=== PATIENT | male | born 1995 | race Caucasian/White ===

== ENCOUNTER 2019-05-29 17:30 | Emergency (ER) | payer BC, SELFPAY ==
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
[2019-05-29 17:43] VITALS: BP 150/91; PULSE 110; RESP 16; TEMP 37.2; O2SAT 99
[2019-05-29 18:10] LABS: Basophils Absolute Auto 0.1 K/mm3 (0.0-0.1); Basophils Percent Auto 0.5 % (0.2-1.2); Eosinophils Absolute Auto 0.2 K/mm3 (0-0.3); Eosinophils Percent Auto 0.9 % (0-4.4); Hematocrit 39.8 % (42.0-52.0); Hemoglobin 13.5 g/dL (14.0-18.0); Immature Granulocyte Absolute 0.07 K/mm3 (0.00-0.031); Immature Granulocyte Percent A 0.4 % (0-0.5); Lymphocytes Absolute Auto 1.65 K/mm3 (0.9-3.2); Lymphocytes Percent Auto 8.9 % (18.3-44.2); Mean Corpuscular HGB Conc 33.9 g/dl (32-36); Mean Corpuscular Volume 82.6 fl (80-100); Mean Platelet Volume 10.5 fl (7.4-10.4); Monocytes Absolute Auto 0.9 K/mm3 (0.1-0.6); Monocytes Percent Auto 5.1 % (2.6-8.5); Neutrophils Absolute Auto 15.5 K/mm3 (1.3-6.7); Neutrophils Percent Auto 84.2 % (45.5-73.1); Platelet Count Result 270 k/mm3 (150-375); Red Blood Count 4.82 M/mm3 (4.6-6.20); Red Cell Distribution Width 13.7 % (11.5-14.5); White Blood Count 18.4 K/mm3 (4.5-10.0)
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
[2019-05-29 18:22] LABS: Blood Urea Nitrogen 27 mg/dL (9-20); Calcium 9.6 mg/dL (8.4-10.2); Carbon Dioxide 23 mmol/L (22-30); Chloride 106 mmol/L (98-107); Estimated CRCL calculation 53 ml/min; Estimated Glomerular Filt Rate 28; Glucose 115 mg/dL (75-110); Potassium 3.5 mmol/L (3.4-5.0); Sodium 137 mmol/L (137-145)
== END 2019-05-29 19:43 | disposition home or self-care (01) ==
PROVIDERS: Emergency Medicine Emergency Medical Services; Emergency Provider Emergency Medicine; PCP Family Medicine
DX: S42.022A Displaced fracture of shaft of left clavicle, initial encounter for closed fracture (principal); Z87.891 Personal history of nicotine dependence; V86.56XA Driver of dirt bike or motor/cross bike injured in nontraffic accident, initial encounter
CPT/HCPCS: 36415; 71250; 72125; 80048; 85025; 99284; A4565; A9270

== ENCOUNTER 2020-01-16 09:07 | Emergency (ER) | payer BC, SELFPAY ==
--- NOTE | ~2020-01-16 | CT_ITS ---
EXAMINATION: CT abdomen pelvis wo con DATE: 01/16/2020 09:45 INDICATION: Abdominal pain. TECHNIQUE: Computed tomography (CT) of the abdomen and pelvis was performed without intravenous contr ast. Automated exposure control and iterative reconstruction technique were employed. The dose-length product was 1118.89 mGy-cm. COMPARISON: Chest CT 05/29/2019 FINDINGS: The visualized portions of the lung bases are clear without pneumonia or pleural effusion. The heart size is normal. No pericardial effusion. The liver, gallbladder, spleen, pancreas, and adre nal glands are normal. The kidneys are enlarged and contain innumerable cysts, hemorrhagic cysts, and indeterminate masses. The largest indeterminant mass measures 3.4 cm in right kidney. There are pare nchymal calcifications in both kidneys. There is mild bilateral hydronephrosis. There is asymmetric f at stranding in right perinephric space. There are no dilated loops of bowel. The appendix is normal. There are no pathologically enlarged lymph nodes. There is no free intraperitoneal fluid. There are small bilateral inguinal hernias containing fat. The bones are unremarkable. IMPRESSION: 1. Polycystic kidney disease. 2. Asymmetric fat stranding in right perinephric space, consistent with edema versus inflammation. Ru ptured cyst is a possible etiology. 3. Indeterminate masses in the kidneys measuring up to 3.4 cm on the right. These findings are most l ikely hemorrhagic cysts, but neoplasm cannot be excluded. 4. Mild bilateral hydronephrosis with transition points at the ureteropelvic junctions. It is not teersa ar if these findings are clinically significant. Reviewed, dictated and finalized at location A. IMPRESSION: 1. Polycystic kidney disease. 2. Asymmetric fat stranding in right perinephric space, consistent with edema v ersus inflammation. Ruptured cyst is a possible etiology. 3. Indeterminate masses in the kidneys measuring up to 3.4 cm on the right. The se findings are most likely hemorrhagic cysts, but neoplasm cannot be excluded. 4. Mild bilateral hydronephrosis with transition points at the ureteropelvic ju nctions. It is not clear if these findings are clinically significant.
[2020-01-16 09:15] VITALS: BP 163/96; PULSE 76; RESP 18; TEMP 36.3; O2SAT 100
[2020-01-16 09:30] LABS: Basophils Absolute Auto 0.1 K/mm3 (0.0-0.1); Basophils Percent Auto 0.6 % (0.2-1.2); Eosinophils Absolute Auto 0.5 K/mm3 (0-0.3); Eosinophils Percent Auto 3.9 % (0-4.4); Hematocrit 37.5 % (42.0-52.0); Hemoglobin 12.4 g/dL (14.0-18.0); Immature Granulocyte Absolute 0.04 K/mm3 (0.00-0.031); Immature Granulocyte Percent A 0.3 % (0-0.5); Lymphocytes Percent Auto 17.7 % (18.3-44.2); Mean Corpuscular HGB Conc 33.1 g/dl (32-36); Mean Corpuscular Hemoglobin 27.9 pg (26-34); Mean Corpuscular Volume 84.3 fl (80-100); Mean Platelet Volume 10.5 fl (7.4-10.4); Monocytes Percent Auto 7.9 % (2.6-8.5); Neutrophils Absolute Auto 8.6 K/mm3 (1.3-6.7); Neutrophils Percent Auto 69.6 % (45.5-73.1); Platelet Count Result 260 k/mm3 (150-375); Red Blood Count 4.45 M/mm3 (4.6-6.20); Red Cell Distribution Width 13.8 % (11.5-14.5); White Blood Count 12.4 K/mm3 (4.5-10.0)
[2020-01-16] MEDS: FAMOTIDINE 20 MG/2 ML VIAL IV PUSH (09:33)
[2020-01-16] MEDS: SODIUM CHLORIDE 0.9% IV 1,000 ML 999 ML IV CONT ×2 (09:33→10:58)
[2020-01-16 09:35] LABS: Add Urine Microscopic? YES; Appearance Urine Clear (Clear); Bacteria Urine Trace /hpf; Bilirubin Urine Negative (Negative); Blood Urine 1+ (Negative); Color Urine Straw (Yellow); Glucose Urine UA 1+ mg/dL (Negative); Ketones Urine Negative (Negative); Leukocyte Esterase Ur Negative LEU/UL (Negative); Mucus Urine Rare /lpf; Nitrate Urine Negative (Negative); Protein Urine 3+ mg/dL (Negative); Specific Grav Ur 1.011 (1.001-1.035); Urobilinogen Urine Negative mg/dL (<2.0); WBC Urine 0-3 /hpf
[2020-01-16 09:40] LABS: Alanine Aminotransferase 16 U/L (4-50); Albumin Level 3.8 g/dL (3.5-5.1); Alkaline Phosphatase 68 U/L (38-126); Anion Gap 8 mmol/L (8-16); Aspartate Amino Transferase 15 U/L (17-59); Bilirubin,Total 0.9 mg/dL (0.2-1.3); Blood Urea Nitrogen 43 mg/dL (9-20); Calcium 9.4 mg/dL (8.4-10.2); Carbon Dioxide 20 mmol/L (22-30); Chloride 110 mmol/L (98-107); Estimated CRCL calculation 31 ml/min; Estimated Glomerular Filt Rate 15; Glucose 107 mg/dL (75-110); Lipase 77 U/L (23-300); Potassium 4.2 mmol/L (3.4-5.0); Sodium 138 mmol/L (137-145)
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
[2020-01-16 11:36] VITALS: BP 148/76; PULSE 70; RESP 15; O2SAT 99
== END 2020-01-16 11:38 | disposition home or self-care (01) ==
PROVIDERS: Emergency Medicine Emergency Medical Services; Emergency Provider Emergency Medicine; PCP Family Medicine
DX: N17.9 Acute kidney failure, unspecified (principal); Q61.3 Polycystic kidney, unspecified; N18.9 Chronic kidney disease, unspecified; Z87.891 Personal history of nicotine dependence; N13.30 Unspecified hydronephrosis; N28.89 Other specified disorders of kidney and ureter
CPT/HCPCS: 36415; 74176; 80053; 81001; 83690; 85025; 96361; 96374; 99284; J7030

== ENCOUNTER 2020-03-16 15:04 | Outpatient (CLI) | payer BC, SELFPAY ==
--- NOTE | ~2020-03-16 | MR_ITS ---
EXAMINATION: MRA brain wo con EXAM DATE: 03/16/2020 16:11 INDICATION: Autosomal dominant polycystic kidney disease. TECHNIQUE: 3-D [id number] MRA of the intracranial arteries was performed without contrast. Compar clara is made to prior examination from 08/07/2015. FINDINGS: There is normal flow related signal seen within the vertebral, basilar and internal carotid arteries. Development of focal stenosis at an origin of one of the left middle cerebral artery branches at the trifurcation (Sequence 2 image 120). Otherwise, no focal narrowings. There are no aneurysms identifi ed. Both A1 and P1 segments are patent. Flow in the cerebral arteries is symmetric. Moderate-sized right maxillary sinus retention cyst. IMPRESSION: 1. No cerebral artery aneurysms. 2. Development of focal short segment stenosis of a left M2 segment. Reviewed, dictated and finalized at location A. OTAPE OPERATOR
== END 2020-03-16 15:05 | disposition home or self-care (01) ==
PROVIDERS: PCP Family Medicine; Visit Provider Internal Medicine Nephrology
DX: Q61.2 Polycystic kidney, adult type (principal)
CPT/HCPCS: 70544

== ENCOUNTER 2020-06-18 15:28 | Outpatient (CLI) | payer BC, SELFPAY ==
--- NOTE | ~2020-06-18 | XR_ITS ---
XR chest 2V DATE: 06/18/2020 15:48 INDICATION: TB screening before starting dialysis TECHNIQUE: PA and lateral views COMPARISON: 05/29/2019 CT chest FINDINGS: Normal heart size. No hilar or mediastinal enlargement. The lungs are clear of infiltrate o r consolidation. No pleural effusion or pulmonary vascular congestion or pneumothorax. Plate and screws along the left clavicular shaft. IMPRESSION: No active cardiopulmonary disease Reviewed, dictated and finalized at location B.
[2020-06-18 16:45] LABS: Hematocrit 33.9 % (42.0-52.0); Hemoglobin 11.3 g/dL (14.0-18.0); Mean Corpuscular HGB Conc 33.3 g/dl (32-36); Mean Corpuscular Hemoglobin 27.4 pg (26-34); Mean Corpuscular Volume 82.1 fl (80-100); Mean Platelet Volume 10.7 fl (7.4-10.4); Platelet Count Result 223 k/mm3 (150-375); Red Blood Count 4.13 M/mm3 (4.6-6.20); Red Cell Distribution Width 13.7 % (11.5-14.5)
[2020-06-18 16:51] LABS: Albumin Level 3.9 g/dL (3.5-5.1); Anion Gap 10 mmol/L (8-16); Blood Urea Nitrogen 55 mg/dL (9-20); Calcium 8.1 mg/dL (8.4-10.2); Carbon Dioxide 19 mmol/L (22-30); Chloride 110 mmol/L (98-107); Estimated Glomerular Filt Rate 8; Glucose 92 mg/dL (75-110); Phosphorus 5.8 mg/dL (2.5-4.5); Potassium 4.2 mmol/L (3.4-5.0); Sodium 139 mmol/L (137-145)
[2020-06-18 17:42] LABS: Hepatitis B Surface Antigen Negative (Negative)
[2020-06-18 17:59] LABS: Hepatitis B Surface Anti Res Negative
[2020-06-21 19:22] LABS: Hepatitis B Core Ab Total Nonreactive (Nonreactive)
== END 2020-06-18 15:29 | disposition home or self-care (01) ==
LOC: ANHIMG 15:38
PROVIDERS: PCP Family Medicine; Visit Provider Internal Medicine Nephrology
DX: N18.5 Chronic kidney disease, stage 5 (principal)
CPT/HCPCS: 36415; 71046; 80069; 85027; 86704; 86706; 87340

== ENCOUNTER 2023-08-22 09:57 | Outpatient (CLI) | payer MEDICARE, SELFPAY ==
--- NOTE | 2023-08-22 10:05 | ECG_ITS ---
SEE SCANNED COPY FOR CONFIRMED REPORT MTDD
== END 2023-08-22 09:58 | disposition home or self-care (01) ==
PROVIDERS: PCP Family Medicine; Visit Provider Anesthesiology
DX: Z01.818 Encounter for other preprocedural examination (principal); I10 Essential (primary) hypertension
CPT/HCPCS: 93005

== ENCOUNTER 2023-08-31 04:15 | Day surgery (SDC) | payer MEDICARE, SELFPAY ==
[2023-08-19 09:41] VITALS: BMI 38.2
--- NOTE | 2023-08-19 09:46 | PC.NURSE ---
Report to the Outpatient Waiting Room, entrance under the green pavilion located off [facility], at time _0600_ on date 08/31/23_. Planned Procedure Time: _0730__. Time changes happen often and if your time is changed the preop area will call you the afternoon before. - You and your visitor will be asked to self-screen and do not enter if you have any COVID symptoms. - A mask is optional within the hospital at this time. Patients may have clear liquids (water, carbonated beverages, clear teas, apple juice) until 3 hours prior to surgery with a maximum of 20 ounces. - No food from midnight until time of surgery - Infants may have breast milk until 4 hours before surgery, infant formula 6 hours prior to surgery. - Children will be allowed to drink immediately following surgery. If applicable, please bring a bottle or sippy cup to assist with drinking. Juice, water, soda, and popsicles are readily available. For infants on formula, please bring formula the day of surgery. Pacifiers are allowed. Take the following medications with a SIP of water the morning of surgery: AMLODIPINE, METOPROLOL, PAROXITINE DO NOT STOP ANY OF YOUR OTHER PRESCRIPTION MEDICATIONS PRIOR TO SURGERY ?EXCEPT THE FOLLOWING Medications to discontinue per physician VITAMIN D3 Date to take last dose 08/28/23se no make-up, nail occitan, hairspray, perfume, deodorant, or body powder the day of surgery. No jewelry (including any body piercings) or valuables the day of surgery, leave them at home. Please take a shower or bath the night before, or the morning of, surgery with HIBICLENS antibacterial soap. Wear comfortable, loose fitting clothing. Children are encouraged to wear pajamas. - Jewelry must be removed prior to entering the operating room. Rings and piercings that are not removed may be cut off. - The hospital will not accept responsibility for valuables. - Please leave all valuables, including medications, at home the day of surgery. If you are going home after surgery, a licensed armored car guard and driver must drive you home. - NO public transportation without another adult if you receive anesthesia. - We recommend that an adult stay with you for 24 hours following discharge. - We also recommend that you do not drive, make important decision, drink alcoholic beverages, or take any drugs that were not prescribed by your health care provider for at least 24 hours after your discharge time. For Pediatric surgeries, we recommend two adults accompany the child home. Follow any additional instructions given to you from your surgeon. If you or anyone in your household have experienced Covid symptoms in the past week, please notify your surgeon or the nurse liaison at the phone number below for possible testing. Telephone instructions given to PATIENT__and asked if any additional questions and then verbalized understanding. Patient advised to call surgeon office or pre surgery nurse liaison [phone] if any additional questions.
[2023-08-31] VITALS (10 sets, daily range): BP systolic 119–147; BP diastolic 64–95; PULSE 72–99; RESP 12–18; TEMP 36.1–36.3; O2SAT 94–100
[2023-08-31] MEDS: SODIUM CHLORIDE 0.9% IV 500 ML 30 ML IV CONT (06:30)
[2023-08-31 06:41] LABS: Anion Gap 14 mmol/L (4-12); Blood Urea Nitrogen 42 mg/dL (9-20); Calcium 9.6 mg/dL (8.4-10.2); Carbon Dioxide 24 mmol/L (22-30); Chloride 98 mmol/L (98-107); Estimated CRCL calculation 14 ml/min; Estimated Glomerular Filt Rate 6; Glucose 90 mg/dL (65-110); Potassium 4.4 mmol/L (3.4-5.0); Sodium 136 mmol/L (137-145)
[2023-08-31 06:42] LABS: Partial Thromboplastin Time 30.3 Seconds (22.3-36.8); Prothrombin Time 13.5 Seconds (11.1-14.7)
[2023-08-31] MEDS: ACETAMINOPHEN 500 MG TABLET 1000 MG PO (07:07)
--- NOTE | 2023-08-31 07:08 | WPDHPUPDATE1 ---
History and Physical Update Update Date/Time: 08/31/23 07:08 History and Physical has been reviewed, including an updated exam of the patient. There are NO changes in the patient's condition. Risks, benefits, and alternatives have been discussed and questions answered. Patient agrees to proceed with procedure.
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
[2023-08-31] MEDS: ceFAZolin 3 GM/D5W 100 ML 100 ML IVPB (07:29)
[2023-08-31] MEDS: LIDO 1%/EPINEPHRINE 1:100,000 50 ML VIAL 30 ML INFILTRATE (07:51)
[2023-08-31] MEDS: BUPivacaine HCL 0.5% PF 30 ML VIAL INFILTRATE (08:41)
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
--- NOTE | 2023-08-31 09:29 | P.OPB_ITS ---
Procedure Note - Brief Procedure Note - Brief Date of procedure: 08/31/23 Incarcerated Umb Hernia Post-op diagnosis: Same Procedure performed: Open incarcerated umbilical hernia repair without mesh. Surgeon: Guanaco Matthew MD Electrical Installation Inspector: Elliott Delarosa CST Anesthesia: GETA Findings: 1.5cm umbilical fascial defect with incarcerated preperitoneal fat and omentum. Approximately 7950 cc of clear odell color non cloudy ascites fluid. Implants: None Estimated blood loss (mL): 10 Drains: No Packing: No Pathology: Yes (Hernia sac to pathology) Complications: No immediate complications Condition: Stable Disposition: PACU
--- NOTE | 2023-08-31 09:39 | W.PM.PROC2 ---
Procedure Note - Detailed Date of Procedure 08/31/23 Pre-op Diagnosis Incarcerated Umb Hernia Post-op Diagnosis Same Procedure Performed Open incarcerated umbilical hernia repair without mesh. Surgeon Guanaco Matthew MD [employer] [facility] General Indications Patient is a 28-year-old gentleman who presented with increasing swelling and soreness and a protrusion is umbilicus. A previous peritoneal dialysis catheter in place and after was removed he noticed having increasing swelling in this area. The umbilical hernia was non reducible and appeared to have some incarcerated fatty tissue within it. He has been brought to operating now for a open incarcerated ventral hernia repair without mesh. Findings Patient a small 1.5cm primary umbilical hernia defect with incarcerated preperitoneal fat and omentum. Upon opening the hernia sac there was copious amounts of odell non cloudy and nonbloody appearing ascites fluid was drained from the abdomen. I did a draining approximately 7950 cc of ascites fluid from the abdomen. Description of Procedure After informed consent was obtained patient brought to the operating room was placed supine position and general endotracheal anesthesia was administered. The abdomen was then prepped and draped usual sterile fashion. A time-out was then performed correctly identifying the patient as well as procedure to be performed. He was given perioperative IV antibiotics. I started by making a small incision along the umbilical margin extending the incision in a half-feliciano configuration to excise out a portion the redundant periumbilical skin. This is done sharply with a scalpel and then electrocautery into the skin was removed and it was discarded. I dissected the hernia sac from the surrounding subcutaneous tissues. I then opened the hernia sac to find some incarcerated omentum and preperitoneal fat. This is all viable. Also upon opening of hernia sac there was copious amounts of odell non bloody and non purulent fluid drained from the abdomen. [id number] of ascites fluid was drained from the abdomen. Once this was done I then proceeded to close the fascial defect at the umbilicus which measured about 1.5cm in diameter. This is done primarily with multiple interrupted 0 Ethibond sutures. The fascial edges approximated easily without any tension. I then proceeded to recreate the inverted umbilicus. The umbilical skin was then tacked down to the deeper fascial structures 3-0 Vicryl suture. The subcutaneous tissues then closed utilizing layers of interrupted 2-0 Vicryl and 3-0 Vicryl sutures. Skin edges were then approximated utilizing a running subcuticular 4 Monocryl suture. Incision was then cleaned the skin glue was applied. A pressure dressing and abdominal binder was placed. The patient tolerated the procedure well no complications. All sponges, needles, and instrument counts were correct at the end procedure. EBL was _10__cc. The patient was awakened and taken to recovery in stable and satisfactory condition. Implants None Estimated Blood Loss 10 Drains No Packing No Pathology Yes (Hernia sac sent to pathology) Complications No immediate complications Condition Stable Disposition PACU [facility] Billing Surgery - Charge Forward: Surgery Billing
[2023-08-31] MEDS: oxyCODONE HCL (*CRX) 5 MG TAB IR PO (10:55)
== END 2023-08-31 11:04 | disposition home or self-care (01) ==
PROVIDERS: Anesthesiology; PCP Family Medicine; Visit Provider Surgery
PROC: (CPT 49592; principal; 2023-08-31 07:30)
DX: K42.0 Umbilical hernia with obstruction, without gangrene (principal); R18.8 Other ascites; Z79.51 Long term (current) use of inhaled steroids; N18.4 Chronic kidney disease, stage 4 (severe); Q61.3 Polycystic kidney, unspecified; Z99.2 Dependence on renal dialysis; F17.220 Nicotine dependence, chewing tobacco, uncomplicated; E66.9 Obesity, unspecified; Z68.38 Body mass index [BMI] 38.0-38.9, adult
CPT/HCPCS: 49592; 36415; 80048; 85610; 85730; 88302; A9270; J0690; J1100; J1170; J2250; J2371; J2405; J2704; J7040